=== PATIENT | male | born 1985 | race Caucasian/White ===

== ENCOUNTER 2019-12-25 20:05 | Emergency (ER) | payer SELFPAY ==
[2019-12-25 20:39] VITALS: BP 115/80; PULSE 83; RESP 16; TEMP 36.8; O2SAT 99
[2019-12-25 21:25] LABS: Basophils # 0.1 10^3/uL (0.0-0.1); Basophils % 1.4 %; Eosinophils # 0.3 10^3/uL (0.0-0.8); Eosinophils % 3.7 %; Hemoglobin 15.5 g/dL (11.7-16.6); Lymphocytes # 3.5 10^3/uL (0.8-4.8); Lymphocytes % 38.4 %; Mean Corpuscular HGB Conc 33.7 g/dL (30.0-36.0); Mean Corpuscular Hemoglobin 29.7 pg (28.0-34.0); Mean Corpuscular Volume 88.1 fL (80-94); Mean Platelet Volume 10.5 fL (7.4-10.4); Monocytes # 0.7 10^3/uL (0.2-0.9); Monocytes % 7.2 %; Neutrophils # 4.5 10^3/uL (1.8-7.7); Neutrophils % 49.1 %; Nucleated Red Blood Cells % 0 %; Platelet Count 333 10^3/cmm (130-400); Red Blood Count 5.22 10^6/uL (4.1-5.3); Red Cell Distribution Width 12.3 % (12.1-15.1); White Blood Count 9.1 10^3/uL (4.0-10.0)
[2019-12-25 21:31] LABS: Alanine Aminotransferase 16 U/L (0-41); Albumin Level 4.7 g/dL (3.5-5.2); Alkaline Phosphatase 80 IU/L (40-130); Anion Gap 16.5 (5-19); Aspartate Amino Transferase 13 U/L (0-40); Blood Urea Nitrogen 15 mg/dL (6-20); Calcium 10.4 mg/dL (8.5-10.5); Carbon Dioxide 29 mmol/L (22-29); Chloride 102 mmol/L (98-107); Globulin 3.1 g/dL (1.3-4.6); Glomerular Filtration Rate 96.6 mL/min (90-130); Glucose 73 mg/dL (65-115); Lipase 23 U/L (13-60); Osmolality Calculated 291 mOsm/kg (285-295); Potassium 4.5 mmol/L (3.5-5.1); Sodium 143 mmol/L (136-145); Total Bilirubin 0.4 mg/dL (0.15-1.2); Total Protein 7.8 g/dL (6.6-8.7)
--- NOTE | 2019-12-25 22:59 | CTR_ITS ---
PROCEDURE INFORMATION: Exam: CT Abdomen And Pelvis With Contrast Exam date and time: 12/25/2019 11:00 PM Age: 34 years old Clinical indication: Abdominal pain; Generalized TECHNIQUE: Imaging protocol: Computed tomography of the abdomen and pelvis with intravenous contrast. Radiation optimization: All CT scans at this facility use at least one of these dose optimization techniques: automated exposure control; mA and/or kV adjustment per patient size (includes targeted exams where dose is matched to clinical indication); or iterative reconstruction. Contrast material: OMNI 300; Contrast volume: 95 ml; Contrast route: 20G; COMPARISON: No relevant prior studies available. RADIATION DOSE METRICS: Total DLP: 563.47 mGy-cm FINDINGS: Lungs: There is a 7.1 mm partially imaged pulmonary nodularity seen in the right lower lobe laterally. A 4.8 mm pulmonary nodularity is seen within the right middle lobe. A 7.1 mm pulmonary nodularity is seen in the left lower lobe laterally. These likely represent benign the granulomas. Liver: Normal. No mass. Gallbladder and bile ducts: Normal. No calcified stones. No ductal dilation. Pancreas: Normal. No ductal dilation. Spleen: Normal. No splenomegaly. Adrenals: Normal. No mass. Kidneys and ureters: Normal. No hydronephrosis. Stomach and bowel: Unremarkable. No obstruction. No mucosal thickening. Appendix: The the appendix is visualized and is normal in configuration. Intraperitoneal space: Unremarkable. No free air. No significant fluid collection. Vasculature: Unremarkable. No abdominal aortic aneurysm. Lymph nodes: Unremarkable. No enlarged lymph nodes. Bladder: Unremarkable as visualized. Reproductive: Unremarkable as visualized. Bones/joints: Unremarkable. No acute fracture. Soft tissues: Unremarkable. CT/CT abdomen pelvis w con* [id number] IMPRESSION: 1. There are bilateral pulmonary nodularities present. The largest measures 7.1 mm seen in the lower lobes bilaterally. For patients at low risk (minimal or absent history of smoking and of other known risk factors), recommend CT at 3-6 months, then consider CT at 18-24 months. For patients at high risk (history of smoking or of other known risk factors), recommend CT at 3-6 months, then CT at 18-24 months. (Maira et al., Fleischner Society, 2017) 2. There are no acute abdominal findings. Radiation Dose CTDIVOL = (mGy): DLP = 563.47 (mGy-cm)
--- NOTE | 2019-12-26 00:14 | USR_ITS ---
PROCEDURE INFORMATION: Exam: US Scrotum Exam date and time: 12/26/2019 1:09 AM Age: 34 years old Clinical indication: Groin pain TECHNIQUE: Imaging protocol: Real-time ultrasound of the scrotum and contents with color Doppler and image documentation. COMPARISON: No relevant prior studies available. FINDINGS: Right testicle: The right testis measures 4.6 x 2.1 x 2.9 cm. Vascular flow is demonstrated within the right testis with color Doppler and duplex waveform sonography. PSV 4.6 cm/s, RI 0.58. Left testicle: The left testis measures 4.5 x 1.9 x 2.9 cm. Vascular flow is demonstrated within the left testis with color Doppler and duplex waveform sonography. PSV 4.4 cm/s, RI 0.57. Epididymides: There is a 4.1 x 4.4 x 7.0 mm hypoechoic region seen within the right epididymis. This appears avascular on color Doppler imaging. This could represent a developing spermatocele. A benign adenomatoid tumor is a possibility. An epididymal abscess is less likely in view of the relative avascularity. Malignant lesion such as leukemia or metastasis cannot be entirely excluded. Scrotum: Anechoic material surrounds the left testis compatible with a small hydrocele. US/US scrotum [id number] IMPRESSION: There is a hypoechoic solid-appearing lesion seen within the right epididymis. Most epididymal lesions are benign as described above. However, certain malignant lesions such as leukemia or metastatic lesion cannot be entirely excluded in the appropriate clinical setting.
[2019-12-26] MEDS: ondansetron 2 mg/ML SDV 2 mL 4 MG IVP (00:20)
[2019-12-26] MEDS: sodium chloride 0.9% 1,000 ML 100 ML IV (00:20)
--- NOTE | 2019-12-26 00:24 | ED_ITS ---
HPI - Abdominal Pain General: Chief Complaint: Abdominal Pain Stated Complaint: bloody stool; hernia; sent by Jordana Time Seen by Provider: 12/25/19 23:54 History of Present Illness: HPI narrative: Toro is a nice 34-year-old male who comes in complaining of right-sided abdominal pain. The pain is been present since Sunday 5 days ago. He describes the pain as a burning pain and sometimes radiates down into his right inguinal area and down to the front of his right leg. He has had some right testicular pain. Denies any testicular swelling or hematuria. He states he has been constipated and had to strain very hard at one time causing him to have some blood in his stool which was very minimal in amount. He is unaware of anything that makes his symptoms better but he does state that he has pain when he moves more. Associated Symptoms: Reports constipation, hematochezia and nausea; Denies chills, coffee ground emesis, GI cramping, diarrhea, dysuria, fever(s), heartburn, hematuria, hematemesis, melena, syncope and vomiting Review of Systems Const: Denies: fever(s), chills, body aches, fatigue, malaise or diaphoresis Eyes: Denies: change in vision, blurry vision, blind spots or photophobia ENMT: Denies: throat pain, odynophagia, hoarseness, swelling of lips/tongue, ear or mastoid pain, ear discharge, change in hearing or nasal discharge Card: Denies: chest pain, palpitations, irregular heart rhythm, edema, lightheadedness, syncope, pre-syncope, dyspnea on exertion or orthopnea Resp: Denies: dyspnea, productive cough, non-productive cough, wheezing, hemoptysis or chest congestion GI: Reports: abdominal pain, nausea, constipation and hematochezia; Denies: vomiting, hematemesis, coffee ground emesis, heartburn, diarrhea, GI cramping or melena : Denies: flank pain, dysuria, urinary frequency, urinary urgency or hematuria Musc: Denies: neck pain, back pain, extremity pain, extremity swelling, joint pain, joint swelling, joint redness, joint warmth or joint stiffness Skin/Breast: Denies: rash, pruritus, erythema, skin tenderness or jaundice Neuro: Denies: headache(s), numbness in extremities, weakness in extremities, sensory changes, lack of coordination, difficulty walking, dizziness, vertigo, confusion or Slurred speech present Kennedy/Lymph: Denies: easy bruising, easy bleeding, petechiae, purpura or enlarged lymph nodes All/Imm: Denies: urticaria, throat swelling, tongue swelling, facial swelling or acute wheezing PFSH ED PFSH: Medical History Diabetes mellitus type 1 Skin graft (allograft) (autograft) failure Surgical History H/O knee surgery Social History Smoking and tobacco status: current every day smoker Physical Exam Const: COMMON NORMALS: no acute distress, patient oriented x3, no limitations, healthy appearing and well nourished GENERAL APPEARANCE: cooperative, well kempt and well developed HENMT: COMMON NORMALS: normocephalic, atraumatic, hearing grossly normal bilaterally, external ears normal, EAC's normal, Normal external nose present and moist oral mucous membranes HEAD & SCALP: normocephalic and atraumatic NOSE: Normal external nose present and Normal nares present EXTERNAL EAR: Yes external ears normal EXTERNAL AUDITORY CANAL: EAC's normal MOUTH: Normal oral and palatal mucosa present, lip normal and tongue normal Eye: COMMON NORMALS: Equal, round and reactive pupils present, EOMs intact bilaterally, conjunctivae normal and no scleral icterus GENERAL EYE: appearance normal, both eyes and all related structures ALIGNMENT: Yes alignment normal PERIORBITAL: periorbital findings normal EYELID: eyelids normal CONJUNCTIVA: Yes conjunctivae normal SCLERA: sclerae normal PUPIL: Yes Equal, round and reactive pupils present Neck/C-Spine: COMMON NORMALS: full ROM, no lymphadenopathy, supple, no meningeal signs and no JVD GENERAL: Yes normal visual inspection and Yes trachea midline Chest: COMMONS NORMALS: normal inspection of the chest and normal palpation of entire chest wall Resp: COMMON NORMALS: normal respiratory effort, No retractions, No use of accessory muscles and clear to auscultation bilaterally EFFORT & INSPECTION: Yes able to speak in complete sentences and Yes symmetric chest movement AUSCULTATION: clear to auscultation bilaterally, no crackles, no rales, no rhonchi and no wheezes Cardio: COMMON NORMALS: no JVD, regular rate, regular rhythm, S1 normal heart sound present, S2 normal heart sound present, No gallops present (Cardio), No clicks present (Cardio), No murmurs present (Cardio) and No rub (Cardio) RATE: regular rate RHYTHM: regular rhythm HEART SOUNDS: S1 normal heart sound present and S2 normal heart sound present GI: COMMON NORMALS: Soft to palpation and No hepatosplenomegaly present PALPATION: Yes Soft to palpation, Yes Tenderness to palpation present (GI) Details: RLQ, No Guarding due to palpation present (GI), No Rigid due to palpation, Yes No hepatosplenomegaly present, No Hernia present, No Palpable mass present and No Pulsatile mass present : PENIS: normal penis SCROTUM: Yes testes descended bilaterally, Yes Cremasteric reflex present, No inguinal hernia, Yes Scrotal tenderness present (Right inguinal area and right testicle), No erythematous, No ecchymosis and No edematous TESTES: Yes testicular lie normal, No testicular swelling, Yes testicular tenderness Testicular tenderness laterality: right, No testicular mass and Yes epididymides normal Back/Pelvis: COMMON NORMALS: thoracic and lumbar spine normal to inspection, no thoracic nor lumbar tenderness and thoraco-lumbar ROM normal Extremity: COMMON NORMALS: normal to inspection, full ROM, capillary refill normal, no joint enlargement, no clubbing, cyanosis or edema and no calf tenderness Neuro: COMMON NORMALS: patient oriented x3, CN's II-XII intact bilaterally, moves all extremities, no focal motor deficits and no sensory deficits noted MENINGEAL SIGNS: Yes no meningeal signs SPEECH: speech normal Psych: COMMON NORMALS: mental status grossly normal, Normal thought process present, cooperative, normal affect, speech normal and activity/motor behavior normal APPEARANCE: Yes well kempt SPEECH: Yes normal speech THOUGHT PROCESS: Normal thought process present Skin: COMMON NORMALS: no rashes or lesions noted, turgor normal, no jaundice, no petechiae and no mottling GENERAL SKIN EXAM: no rashes or lesions noted and turgor normal Course Vital Signs: Vital signs: Vital Signs Temperature 98.2 F 12/25/19 20:39 Pulse Rate 96 12/26/19 03:15 Respiratory Rate 16 12/26/19 00:31 Blood Pressure 138/94 12/26/19 03:15 Pulse Oximetry 99 12/26/19 00:39 MDM - Abdominal Pain MDM Narrative: Medical decision making narrative: Toro is a nice 34-year-old male who comes in complaining of right lower quadrant pain described as burning for the past 5 days. At times the pain will radiate down to his right testicle. He denies any blood in his urine, hematuria or dysuria. Ultrasound of his testicles reveals no evidence of torsion but does show a hypoechoic solid appearing lesion within the right epididymis. It is possible this could be causing the pain but not definitive. I will have the patient follow-up as an outpatient with Dr. Kowalski for this. His CT of the abdomen pelvis shows a normal appendix and no evidence of hernia. It does show pulmonary nodules which are incidental. I have gone back and reexamined the patient and although he still has minimal tenderness there is no sign of peritonitis, there is no rebound or guarding. I have informed the patient that it still may be early and his previous symptoms were related to something else so that if his pain persists or gets worse he needs to return here in the next 12 to 24 hours for recheck to rule out appendicitis. He agrees to take today and the weekend off to rest and will follow-up with Dr. Salgado or return here sooner if his symptoms do not improve. All his and his 's questions were answered to their satisfaction and they have no other questions or concerns. Lab Data: Attestation: I reviewed the patient's lab results. Labs: Lab Results 12/25/19 12/25/19 12/26/19 Range/Units 21:10 21:10 00:16 WBC 9.1 (4.0-10.0) 10^3/ uL RBC 5.22 (4.1-5.3) 10^6/u L Hgb 15.5 (11.7-16.6) g/dL Hct 46.0 (42.0-52.0) % MCV 88.1 (80-94) fL MCH 29.7 (28.0-34.0) pg MCHC 33.7 (30.0-36.0) g/dL RDW 12.3 (12.1-15.1) % Plt Count 333 (130-400) 10^3/c mm MPV 10.5 H (7.4-10.4) fL Neut % (Auto) 49.1 % Lymph % (Auto) 38.4 % Aguada % (Auto) 7.2 % Eos % (Auto) 3.7 % Baso % (Auto) 1.4 % Neut # (Auto) 4.5 (1.8-7.7) 10^3/u L Lymph # (Auto) 3.5 (0.8-4.8) 10^3/u L Agu[place] # (Auto) 0.7 (0.2-0.9) 10^3/u L Eos # (Auto) 0.3 (0.0-0.8) 10^3/u L Baso # (Auto) 0.1 (0.0-0.1) 10^3/u L Nucleated RBC % (a uto) 0 % Nucleated RBCs # 0.0 /100WBC Specimen Type Arterial Sample Site Brachial, right ABG pH 7.39 (7.35-7.45) ABG pCO2 47.5 H (35-45) mmHg ABG pO2 78.9 L (80.0-100.0) mmH g ABG HCO3 28.4 H (22-26) mmol/L ABG Base Excess 2.6 H (-2.0-2.0) mmol/ L Juarez Test N/a Hematocrit 41.6 L (42-52) % O2 Delivery Device Room air Head Of Geography ID [email or web address] Sodium 143 (136-145) mmol/L Potassium 4.5 (3.5-5.1) mmol/L Chloride 102 (98-107) mmol/L Carbon Dioxide 29 (22-29) mmol/L Anion Gap 16.5 (5-19) BUN 15 (6-20) mg/dL Creatinine 0.9 (0.7-1.2) mg/dL GFR Calculation 96.6 (90-130) mL/min Glucose 73 (65-115) mg/dL Calculated Osmolal ity 291 (285-295) mOsm/k g Calcium 10.4 (8.5-10.5) mg/dL Magnesium (1.7-2.3) mg/dL Total Bilirubin 0.4 (0.15-1.2) mg/dL AST 13 (0-40) U/L ALT 16 (0-41) U/L Alkaline Phosphata se 80 (40-130) IU/L Total Protein 7.8 (6.6-8.7) g/dL Albumin 4.7 (3.5-5.2) g/dL Globulin 3.1 (1.3-4.6) g/dL Lipase 23 (13-60) U/L Urine Color (Yellow) Urine Appearance (CLEAR) Urine pH (5-7) Ur Specific Gravit y (1.005-1.030) Urine Protein (Negative) Urine Glucose (UA) (Normal) Urine Ketones (Negative) Urine Blood (Negative) Urine Nitrate (Negative) Urine Bilirubin (NEGATIVE) Urine Urobilinogen (Negative) mg/dL Ur Leukocyte Suzanne ase (Negative) Urine RBC (0-2) /hpf Urine WBC (0-5) /hpf Ur Squamous Epith Cells (0-5) Urine Bacteria (NONE) Serum Ketones (Negative) 12/26/19 12/26/19 12/26/19 Range/Units 00:33 00:33 01:00 WBC (4.0-10.0) 10^3/ uL RBC (4.1-5.3) 10^6/u L Hgb (11.7-16.6) g/dL Hct (42.0-52.0) % MCV (80-94) fL MCH (28.0-34.0) pg MCHC (30.0-36.0) g/dL RDW (12.1-15.1) % Plt Count (130-400) 10^3/c mm MPV (7.4-10.4) fL Neut % (Auto) % Lymph % (Auto) % Agu[place] % (Auto) % Eos % (Auto) % Baso % (Auto) % Neut # (Auto) (1.8-7.7) 10^3/u L Lymph # (Auto) (0.8-4.8) 10^3/u L Agu[place] # (Auto) (0.2-0.9) 10^3/u L Eos # (Auto) (0.0-0.8) 10^3/u L Baso # (Auto) (0.0-0.1) 10^3/u L Nucleated RBC % (a uto) % Nucleated RBCs # /100WBC Specimen Type Sample Site ABG pH (7.35-7.45) ABG pCO2 (35-45) mmHg ABG pO2 (80.0-100.0) mmH g ABG HCO3 (22-26) mmol/L ABG Base Excess (-2.0-2.0) mmol/ L Juarez Test Hematocrit (42-52) % O2 Delivery Device Head Of Geography ID Sodium (136-145) mmol/L Potassium (3.5-5.1) mmol/L Chloride (98-107) mmol/L Carbon Dioxide (22-29) mmol/L Anion Gap (5-19) BUN (6-20) mg/dL Creatinine (0.7-1.2) mg/dL GFR Calculation (90-130) mL/min Glucose (65-115) mg/dL Calculated Osmolal ity (285-295) mOsm/k g Calcium (8.5-10.5) mg/dL Magnesium 1.7 (1.7-2.3) mg/dL Total Bilirubin (0.15-1.2) mg/dL AST (0-40) U/L ALT (0-41) U/L Alkaline Phosphata se (40-130) IU/L Total Protein (6.6-8.7) g/dL Albumin (3.5-5.2) g/dL Globulin (1.3-4.6) g/dL Lipase (13-60) U/L Urine Color Yellow (Yellow) Urine Appearance Clear (CLEAR) Urine pH 5 (5-7) Ur Specific Gravit y 1.025 (1.005-1.030) Urine Protein 1+ H (Negative) Urine Glucose (UA) 4+ H (Normal) Urine Ketones Negative (Negative) Urine Blood Trace H (Negative) Urine Nitrate Negative (Negative) Urine Bilirubin Neg (NEGATIVE) Urine Urobilinogen 1 H (Negative) mg/dL Ur Leukocyte Suzanne ase Negative (Negative) Urine RBC 0-4 H (0-2) /hpf Urine WBC 0-4 H (0-5) /hpf Ur Squamous Epith Cells 0-4 H (0-5) Urine Bacteria Trace (NONE) Serum Ketones Negative (Negative) Imaging Data ^: CT Abd/Pel: Radiologist's impression: [address] [place] [address] CT Scan Report Signed Patient: Toro Dumontrest Unit #: [id number] : 1985 Age/Sex: 34 / M ADM Date: 12/25/19 Loc: ER Room/Bed: Attending Dr: Ordering Provider/Ordering MD: Maricruz Rodarte DO Date of Service: 12/25/19 Procedure(s): CT abdomen pelvis w con* [id number] Accession Number(s): [id number] Report Number: [id number] PROCEDURE INFORMATION: Exam: CT Abdomen And Pelvis With Contrast Exam date and time: 12/25/2019 11:00 PM Age: 34 years old Clinical indication: Abdominal pain; Generalized TECHNIQUE: Imaging protocol: Computed tomography of the abdomen and pelvis with intravenous contrast. Radiation optimization: All CT scans at this facility use at least one of these dose optimization techniques: automated exposure control; mA and/or kV adjustment per patient size (includes targeted exams where dose is matched to clinical indication); or iterative reconstruction. Contrast material: OMNI 300; Contrast volume: 95 ml; Contrast route: 20G; COMPARISON: No relevant prior studies available. RADIATION DOSE METRICS: Total DLP: 563.47 mGy-cm FINDINGS: Lungs: There is a 7.1 mm partially imaged pulmonary nodularity seen in the right lower lobe laterally. A 4.8 mm pulmonary nodularity is seen within the right middle lobe. A 7.1 mm pulmonary nodularity is seen in the left lower lobe laterally. These likely represent benign the granulomas. Liver: Normal. No mass. Gallbladder and bile ducts: Normal. No calcified stones. No ductal dilation. Pancreas: Normal. No ductal dilation. Spleen: Normal. No splenomegaly. Adrenals: Normal. No mass. Kidneys and ureters: Normal. No hydronephrosis. Stomach and bowel: Unremarkable. No obstruction. No mucosal thickening. Appendix: The the appendix is visualized and is normal in configuration. Intraperitoneal space: Unremarkable. No free air. No significant fluid collection. Vasculature: Unremarkable. No abdominal aortic aneurysm. Lymph nodes: Unremarkable. No enlarged lymph nodes. Bladder: Unremarkable as visualized. Reproductive: Unremarkable as visualized. Bones/joints: Unremarkable. No acute fracture. Soft tissues: Unremarkable. CT/CT abdomen pelvis w con* [id number] IMPRESSION: 1. There are bilateral pulmonary nodularities present. The largest measures 7.1 mm seen in the lower lobes bilaterally. For patients at low risk (minimal or absent history of smoking and of other known risk factors), recommend CT at 3-6 months, then consider CT at 18-24 months. For patients at high risk (history of smoking or of other known risk factors), recommend CT at 3-6 months, then CT at 18-24 months. (Maira et al., Fleischner Society, 2017) 2. There are no acute abdominal findings. Radiation Dose CTDIVOL = (mGy): DLP = 563.47 (mGy-cm) Dictated By: Tres Purdy MD Signed By: Tres Purdy MD Signed Date/Time: 12/26/19 024 DD/ 0239 US: Radiologist's impression: [place] [address] Ultrasound Report Signed Patient: Toro Dumont Unit #: [id number] : 1985 Age/Sex: 34 / M ADM Date: 12/25/19 Loc: ER Room/Bed: Attending Dr: Ordering Provider/Ordering MD: Maricruz Rodarte DO Date of Service: 12/26/19 Procedure(s): US scrotum [id number] Accession Number(s): [id number] Report Number: [id number] PROCEDURE INFORMATION: Exam: US Scrotum Exam date and time: 12/26/2019 1:09 AM Age: 34 years old Clinical indication: Groin pain TECHNIQUE: Imaging protocol: Real-time ultrasound of the scrotum and contents with color Doppler and image documentation. COMPARISON: No relevant prior studies available. FINDINGS: Right testicle: The right testis measures 4.6 x 2.1 x 2.9 cm. Vascular flow is demonstrated within the right testis with color Doppler and duplex waveform sonography. PSV 4.6 cm/s, RI 0.58. Left testicle: The left testis measures 4.5 x 1.9 x 2.9 cm. Vascular flow is demonstrated within the left testis with color Doppler and duplex waveform sonography. PSV 4.4 cm/s, RI 0.57. Epididymides: There is a 4.1 x 4.4 x 7.0 mm hypoechoic region seen within the right epididymis. This appears avascular on color Doppler imaging. This could represent a developing spermatocele. A benign adenomatoid tumor is a possibility. An epididymal abscess is less likely in view of the relative avascularity. Malignant lesion such as leukemia or metastasis cannot be entirely excluded. Scrotum: Anechoic material surrounds the left testis compatible with a small hydrocele. US/US scrotum [id number] IMPRESSION: There is a hypoechoic solid-appearing lesion seen within the right epididymis. Most epididymal lesions are benign as described above. However, certain malignant lesions such as leukemia or metastatic lesion cannot be entirely excluded in the appropriate clinical setting. Dictated By: Tres Purdy MD Signed By: Tres Purdy MD Signed Date/Time: 12/26/19214 DD/ 2 Discharge Plan Discharge Patient Disposition: Home, Self-Care Clinical Impression: Epididymal mass, Incidental pulmonary nodule, > 3mm and < 8mm Abdominal pain Qualifiers: Abdominal location: right lower quadrant Qualified Code(s): R10.31 - Right lower quadrant pain Condition: Stable Prescriptions: New Zofran 4 mg tablet 4 mg PO Q6H PRN (Reason: nausea and vomiting) Qty: 20 RF: 0 No Action Tresiba FlexTouch U-100 200 units pen injector RF: 0 Apidra SoloStar U-100 Insulin RF: 0 Discharge Orders: Discharge Order (Routine); Ordered 12/26/19 Ordered By: Maricruz Rodarte Referrals: Dea Salgado MD [Referring] - 1-3 days Alexandro Lee, [facility] [Family Provider] - Ben Kowalski MD [Physician] - 7-10 days Discharge Diet: Advance as tolerated and Clear Liquid Discharge Activity: Increase activity as tolerated Patient Instructions: Abdominal Pain (ED) Activity Restrictions/Additional Instructions: Please return to the ER immediately for any of the signs or symptoms listed on your discharge instruction sheets, worsening/changing of your symptoms, you are not getting better as quickly as expected, or for ANY other cause or concerns. Please return to the ER immediately if your abdominal pain worsens, you develop a fever, began to vomit, you develop blood in your urine, or for any other concerns. Return to the ER in the next 12 to 24 hours if your pain does not resolve as appendicitis is still a possibility for your pain. Return to the ER sooner for increased pain and for the symptoms that we have discussed. Be certain to follow-up with Dr. Kowalski concerning that lesion on your right epididymis. Be certain to follow-up with Dr. Salgado as soon as possible for reevaluation and she will also discuss with you following your pulmonary nodules. Discharge Date/Time: 12/26/19 03:20 Coding Level of Care Code ED Shuttle Car Operator for Lalo Fwd Exam Comprehensive
[2019-12-26 00:31] VITALS: RESP 16
[2019-12-26] MEDS: morphine 4 mg/mL SDV 1 mL IVP (00:31)
[2019-12-26 00:39] VITALS: O2SAT 99
[2019-12-26 00:41] LABS: ABG PCO2 47.5 mmHg (35-45); ABG PH Result 7.39 (7.35-7.45); Arterial Blood Gas Hematocrit 41.6 % (42-52); Base Excess ABG 2.6 mmol/L (-2.0-2.0); Blood Gas Sample Site Brachial, right; Blood Gas Sample Type Arterial; HCO3 ABG 28.4 mmol/L (22-26); Oxygen Device ROOM AIR; PO2 ABG 78.9 mmHg (80.0-100.0)
[2019-12-26 00:58] LABS: Magnesium 1.7 mg/dL (1.7-2.3)
[2019-12-26 01:06] LABS: Ketone (Acetest) Serum Negative (Negative)
[2019-12-26 01:12] LABS: Blood Urine Trace (Negative); Glucose Urine UA 4+ (Normal); Ketones Urine Negative (Negative); Protein Urine 1+ (Negative); Specific Gravity, Urine 1.025 (1.005-1.030); Urine Appearance Clear (CLEAR); Urine Color Yellow (Yellow); pH Urine 5 (5-7)
[2019-12-26 01:13] LABS: Bacteria Urine TRACE; Bilirubin Urine Neg (NEGATIVE); Leukocyte Esterase Urine Negative (Negative); Nitrate Urine Negative (Negative); RBC Urine 0-4 /hpf (0-2); Squamous Epithelial Cell Urine 0-4 (0-5); Urobilinogen Urine 1 mg/dL (Negative); WBC Urine 0-4 /hpf (0-5)
[2019-12-26] MEDS: iohexol 300 mg/mL 100 mL Btl IV (02:21)
[2019-12-26 03:15] VITALS: BP 138/94; PULSE 96
--- NOTE | 2019-12-26 10:01 | DCPLANNER ---
cash manager had message to schedule a follow up appointment for patient with Dr. Kowalski. cash manager called the office of Dr. Kowalski, spoke with Azeb, gave clinic patients information. cash manager was told that patients information would be printed and reviewed. Clinic will call medical case manager and patient with appointment information.
--- NOTE | 2019-12-30 07:32 | DCPLANNER ---
Patient has a follow up appointment scheduled for December, at 10:[address] Kowalski. Clinic will call patient with appointment information.
--- NOTE | 2020-01-15 13:49 | DCPLANNER ---
Patient did attend appointment scheduled for 01.02.[address] Kowalski.
== END 2019-12-26 03:20 | disposition home or self-care (01) ==
PROVIDERS: Emergency Provider Emergency Medicine; Family Provider Nurse Practitioner
DX: R10.31 Right lower quadrant pain (principal); N50.9 Disorder of male genital organs, unspecified; R91.1 Solitary pulmonary nodule; Z79.4 Long term (current) use of insulin; E10.9 Type 1 diabetes mellitus without complications; F17.210 Nicotine dependence, cigarettes, uncomplicated
CPT/HCPCS: 12345; 36415; 74177; 76870; 80053; 81001; 82009; 82803; 83690; 83735; 85025; 99282; 99283; J2270; J2405; J7030; Q9967

== ENCOUNTER → 2020-01-02 09:41 | Outpatient (BNVA) | payer SELFPAY | PROVIDERS: Family Provider Nurse Practitioner; PCP Internal Medicine; Visit Provider Urology | DX: N50.89 Other specified disorders of the male genital organs (principal); F17.210 Nicotine dependence, cigarettes, uncomplicated | CPT/HCPCS: 81001 ==

== ENCOUNTER 2020-04-19 13:18 | Outpatient (CLI) | payer SELFPAY ==
--- NOTE | 2020-04-19 13:23 | CT_ITS ---
WS: [id number] CT ABDOMEN AND PELVIS NONCONTRAST HISTORY: ABDOMINAL PAIN TECHNIQUE: Imaging performed through the abdomen and pelvis. Coronal and sagittal reformats are submi tted. All CT scans at [facility] use at least one of these dose optimization techniques: automated exposure control; mA and/or kV adjustment per patient size (includes targeted exams where d ose is matched to clinical indication); or iterative reconstruction. DLP: 1174.29 mGy-cm. COMPARISON: 12/26/2019 Lower thorax: Bilateral lower lobe partially calcified pulmonary nodules are stable since 12/26/2019. Heart size is normal. Small hiatal hernia. Liver: Normal size liver. No mass or bile duct dilatation. Gallbladder: Normal gallbladder. Pancreas: Normal size and attenuation. Normal pancreatic duct. No pancreatitis or mass. Spleen: Normal. Adrenal glands: Normal. No mass. Right kidney: Normal size kidney with no mass or hydronephrosis. Left kidney: Normal size kidney with no mass or hydronephrosis. Aorta: A few scattered plaques within the infrarenal aorta. No aneurysm. No free fluid or intraperitoneal air. No adenopathy is identified on this unenhanced study. GI tract: Normal appendix. There is mild diffuse fecal retention. No wall thickening or inflammation. No obstruction. Abdominal wall: Negative. No hernia. Pelvis: Normal. Osseous structures: Unremarkable. CT/CT kidney stone [id number] IMPRESSION: 1. No renal obstruction or calcifications. 2. Normal appendix. 3. No examination for the patient's RIGHT lower quadrant pain. No ascites or a denopathy appreciated on this unenhanced study. 4. No inguinal hernia.
== END 2020-04-19 13:19 | disposition home or self-care (01) ==
PROVIDERS: Family Provider Nurse Practitioner; PCP Internal Medicine; Visit Provider Internal Medicine
DX: R10.9 Unspecified abdominal pain (principal)
CPT/HCPCS: 74176